=== PATIENT | female | born 1995 | race Caucasian/White ===

== ENCOUNTER 2017-11-24 03:15 | Emergency (ER) | payer BC, OTHER ==
[~2017-11-24] VITALS: Ht 162.6 cm; Wt 54.2 kg
[2017-11-24 03:18] VITALS: TEMP 36.6; Ht 162.6 cm; Wt 54.2 kg
[2017-11-24] MEDS ORDERED: IBUPROFEN 600 MG TAB PO STA (03:42)
[2017-11-24] MEDS ORDERED: ACETAMINOPHEN 500 MG TAB PO STA (03:42)
[2017-11-24 04:47] LABS: BASO % 0.5 %; BASO ABS # 0.05 K/uL (0-0.2); EOS % 3.4 %; EOS ABS # 0.32 K/uL (0-0.5); HEMOGLOBIN 12.3 g/dL (12.0-16.0); IG# 0.03 K/uL (0.00-0.02); LYMPH % 15.2 %; LYMPH ABS # 1.41 K/uL (1.2-3.4); MEAN CELL VOLUME 93.3 fL (80-100); MEAN CORPUSCULAR HEMOGLOBIN 32.8 pg (25-34); MEAN CORPUSCULAR HGB CONC 35.1 g/dl (32-36); MEAN PLATELET VOLUME 9.7 fL (7.4-10.4); MONO % 6.9 %; MONO ABS # 0.64 K/uL (0.11-0.59); NEUT % 73.7 %; NEUT ABS # 6.85 K/uL (1.4-6.5); PLATELET COUNT 282 K/uL (130-400); RED CELL DISTRIBUTION WIDTH CV 12.1 % (11.5-14.5); RED CELL DISTRIBUTION WIDTH SD 41.1 fL (36.4-46.3)
[2017-11-24 05:04] LABS: ALBUMIN 3.6 gm/dl (3.4-5.0); CALCIUM 8.3 mg/dl (8.5-10.1); CREATININE 0.77 mg/dl (0.60-1.20); POTASSIUM 3.7 mmol/L (3.5-5.1)
[2017-11-24 05:07] LABS: TOTAL PROTEIN 6.7 gm/dl (6.4-8.2)
[2017-11-24 06:20] VITALS: BP 112/62; PULSE 82; O2SAT 99
--- NOTE | 2017-11-24 07:24 | DIAGNOSTIC IMAGING REPORT ---
KUB CLINICAL HISTORY: 22 years-old Female presenting with Abd pain. ?Constipation. TECHNIQUE: Single supine view of the abdomen was obtained. COMPARISON: None. FINDINGS: Nonobstructive bowel gas pattern. Moderate stool burden in the right colon. Mottled lucencies in the left upper quadrant may be within the stomach. No gross pneumoperitoneum. Allowing for bowel gas and stool, no calcifications to suggest nephrolithiasis. Osseous structures normal. Lung bases clear. IMPRESSION: 1. Moderate stool burden in the right colon. No bowel obstruction. Electronically signed by: Bayron Vo M.D. 11/24/2017 7:23 AM Dictated Date/Time: 11/24/2017 7:21 AM
--- NOTE | 2017-11-24 07:33 | DIAGNOSTIC IMAGING REPORT ---
TRANSVAG-FEMALE PELVIS CLINICAL HISTORY: Low pelvic pain. Negative test. COMPARISON STUDY: No previous studies for comparison. FINDINGS: The uterus measures 8.6 x 3.4 x 4.8 cm. Endometrium measures 1.3 cm in thickness. Mobile echoes within the endometrium may reflect blood products. The right ovary measures 2.4 x 2 x 2.3 cm and contains a complex 2.1 cm lesion which favors a corpus luteal/hemorrhagic cyst. The left ovary measures 3.7 x 1.8 x 3 cm. There was color flow within each ovary. Small amount of fluid within the pelvis was noted. IMPRESSION: 1. No sonographic evidence of ovarian torsion. 2. Complex 2.1 cm right ovarian lesion which likely reflects a corpus luteal/hemorrhagic cyst. 3. Mobile echoes within the uterine canal which may reflect blood products. Electronically signed by: Dwayne Schroeder M.D. 11/24/2017 7:31 AM Dictated Date/Time: 11/24/2017 7:28 AM
--- NOTE | 2017-11-25 06:32 | EMERGENCY ROOM VISIT NOTE ---
History First contact with patient: 03:22 Chief Complaint: ABDOMINAL PAIN Stated Complaint: SHARP PAIN IN BLADDER AREA Nursing Triage Summary: lower back and mid abdominal pain. pain for 1.5 hours. + nausea. denies V/D. denies urinary symptoms. History of Present Illness The patient is a 22 year old female who presents to the Emergency Room with complaints of mid abdominal pain for the past 90 minutes with nausea. The patient states that she was at work at the time of onset of symptoms. She initially thought that she had used the bathroom, went to the restroom, and reported having a sharp stabbing pain in her low abdomen. She did use the bathroom is normal. The patient does not have chronic medical disease and considers herself usually healthy. No history of abdominal surgery. She is sexually active but is on control and does not believe that she is . The patient has not had recent fever or chills. No chest pain, chest tightness, or shortness of breath. No upper abdominal pain. She has not taken anything [id number] for her symptoms and rates her current discomfort a 7/10. Review of Systems More than 10 systems were reviewed and otherwise negative with the exception of history of present illness. Past Medical/Surgical History No chronic medical disease Family History No pertinent family history Social History Smoking Status: Never Smoker Occupation Status: employed Current/Historical Medications No Active Prescriptions or Reported Meds Physical Exam Vital Signs Date Time Temp Pulse Resp B/P (MAP) Pulse Ox O2 Delivery O2 Flow Rate FiO2 11/24/17 06:20 82 16 112/62 99 11/24/17 05:20 78 18 97/70 99 Room Air 11/24/17 03:18 36.6 84 18 113/74 98 Room Air Physical Exam +VITALS: Vitals are noted on the nurse's note and reviewed by myself. Vital signs stable. GENERAL: Well-developed, well-nourished, white female, who is in no acute distress and resting comfortably. Patient is cooperative with the examination. NECK: Supple without nuchal rigidity. No lymphadenopathy. No thyromegaly. Cervical spine is nontender. HEART: Regular rate and rhythm without murmurs gallops or rubs. LUNGS: Clear to auscultation bilaterally without wheezes, rales or rhonchi. No retractions or accessory muscle use. ABDOMEN: Positive normal bowel sounds x 4. Soft with suprapubic tenderness on palpation. No CVA tenderness. No rebound or guarding. No palpable masses. MUSCULOSKELETAL: No muscle atrophy, erythema, or edema noted. Full range of motion without joint tenderness in all extremities. Medical Decision & Procedures ER Provider Diagnostic Interpretation: KUCielo CLINICAL HISTORY: 22 years-old Female presenting with Abd pain. ?Constipation. TECHNIQUE: Single supine view of the abdomen was obtained. COMPARISON: None. FINDINGS: Nonobstructive bowel gas pattern. Moderate stool burden in the right colon. Mottled lucencies in the left upper quadrant may be within the stomach. No gross pneumoperitoneum. Allowing for bowel gas and stool, no calcifications to suggest nephrolithiasis. Osseous structures normal. Lung bases clear. IMPRESSION: 1. Moderate stool burden in the right colon. No bowel obstruction. TRANSVAG-FEMALE PELVIS CLINICAL HISTORY: Low pelvic pain. Negative test. COMPARISON STUDY: No previous studies for comparison. FINDINGS: The uterus measures 8.6 x 3.4 x 4.8 cm. Endometrium measures 1.3 cm in thickness. Mobile echoes within the endometrium may reflect blood products. The right ovary measures 2.4 x 2 x 2.3 cm and contains a complex 2.1 cm lesion which favors a corpus luteal/hemorrhagic cyst. The left ovary measures 3.7 x 1.8 x 3 cm. There was color flow within each ovary. Small amount of fluid within the pelvis was noted. IMPRESSION: 1. No sonographic evidence of ovarian torsion. 2. Complex 2.1 cm right ovarian lesion which likely reflects a corpus luteal/hemorrhagic cyst. 3. Mobile echoes within the uterine canal which may reflect blood products. Laboratory Results 11/24/17 04:30 Red Blood Count 3.75, Mean Corpuscular Volume 93.3, Mean Corpuscular Hemoglobin 32.8, Mean Corpuscular Hemoglobin Concent 35.1, Mean Platelet Volume 9.7, Neutrophils (%) (Auto) 73.7, Lymphocytes (%) (Auto) 15.2, Monocytes (%) (Auto) 6.9, Eosinophils (%) (Auto) 3.4, Basophils (%) (Auto) 0.5, Neutrophils # (Auto) 6.85, Lymphocytes # (Auto) 1.41, Monocytes # (Auto) 0.64, Eosinophils # (Auto) 0.32, Basophils # (Auto) 0.05 11/24/17 04:30 Test 11/24/17 03:30 11/24/17 04:30 Urine Color YELLOW Urine Appearance CLEAR (CLEAR) Urine pH 8.5 (4.5-7.5) Urine Specific [place] 1.024 (1.000-1.030) Urine Protein NEG (NEG) Urine Glucose (UA) NEG (NEG) Urine Ketones TRACE (NEG) Urine Occult Blood NEG (NEG) Urine Nitrite NEG (NEG) Urine Bilirubin NEG (NEG) Urine Urobilinogen NEG (NEG) Urine Leukocyte Esterase NEG (NEG) Urine Test NEG (NEG) White Blood Count 9.30 K/uL (4.8-10.8) Red Blood Count 3.75 M/uL (4.2-5.4) Hemoglobin 12.3 g/dL (12.0-16.0) Hematocrit 35.0 % (37-47) Mean Corpuscular Volume 93.3 fL (80-100) Mean Corpuscular Hemoglobin 32.8 pg (25-34) Mean Corpuscular Hemoglobin Concent 35.1 g/dl (32-36) Platelet Count 282 K/uL (130-400) Mean Platelet Volume 9.7 fL (7.4-10.4) Neutrophils (%) (Auto) 73.7 % Lymphocytes (%) (Auto) 15.2 % Monocytes (%) (Auto) 6.9 % Eosinophils (%) (Auto) 3.4 % Basophils (%) (Auto) 0.5 % Neutrophils # (Auto) 6.85 K/uL (1.4-6.5) Lymphocytes # (Auto) 1.41 K/uL (1.2-3.4) Monocytes # (Auto) 0.64 K/uL (0.11-0.59) Eosinophils # (Auto) 0.32 K/uL (0-0.5) Basophils # (Auto) 0.05 K/uL (0-0.2) RDW Standard Deviation 41.1 fL (36.4-46.3) RDW Coefficient of Variation 12.1 % (11.5-14.5) Immature Granulocyte % (Auto) 0.3 % Immature Granulocyte # (Auto) 0.03 K/uL (0.00-0.02) Anion Gap 5.0 mmol/L (3-11) Est Creatinine Clear Calc Drug Dose 98.1 ml/min Estimated GFR () 127.0 Estimated GFR (Non- 109.6 BUN/Creatinine Ratio 19.5 (10-20) Calcium Level 8.3 mg/dl (8.5-10.1) Total Bilirubin 0.2 mg/dl (0.2-1) Aspartate Amino Transf (AST/SGOT) 10 U/L (15-37) Alanine Aminotransferase (ALT/SGPT) 17 U/L (12-78) Alkaline Phosphatase 69 U/L (45-117) Total Protein 6.7 gm/dl (6.4-8.2) Albumin 3.6 gm/dl (3.4-5.0) Globulin 3.1 gm/dl (2.5-4.0) Albumin/Globulin Ratio 1.2 (0.9-2) Medications Administered Medications (Trade) Dose Ordered Sig/Hernando Route Start Time Stop Time Status Last Admin Dose Admin Acetaminophen (Tylenol Tab) 1,000 mg NOW STAT PO 11/24/17 03:42 11/24/17 03:43 DC 11/24/17 03:55 1,000 MG Ibuprofen (Motrin Tab) 600 mg NOW STAT PO 11/24/17 03:42 11/24/17 03:43 DC 11/24/17 03:55 600 MG ED Course Physical exam and history were performed. Nursing notes, EMR, and Medication List were personally reviewed. Patient appears to have very low abdominal pain that started about 90 minutes ago. Discomfort is primarily over the suprapubic area and is reproducible on palpation. The discomfort does not appear to be lateralized on examination. Based on initial examination the patient did provide a urine sample. Urinalysis was negative for and did not reveal obvious infection. KUB was then performed, and while this did show some right-sided stool, did not have significant stool throughout the remaining colon to explain her symptoms. At this point IV access was established and labs were obtained. Patient was medicated as above, and ultrasound was performed. The patient's blood work is without a significantly elevated white blood cell count, worsening, bandemia, or significant electrolyte imbalance. The ultrasound is as above and appears to show a small right-sided hemorrhagic ovarian cyst. This is felt to be the likely cause of the patient's discomfort. Overall the patient seems well for discharge home. She is to follow with her primary care physician or LIME HIDE INSPECTOR for ongoing care and evaluation. She will otherwise be treated conservatively. The patient was pleased with plan of care and voiced understanding. The chart was completed utilizing [employer] Speech Voice Recognition Software. Grammatical errors, random word insertions, pronoun errors, and incomplete sentences are an occasional consequence of this system due to software limitations, ambient noise, and hardware issues. Any formal questions or concerns about the content, text, or information contained within the body of this dictation should be directly addressed to the provider for clarification. . Medical Decision Differential diagnosis: Etiologies such as LIME HIDE INSPECTOR etiology, , appendicitis, diverticulitis, PUD , biliary pathology, UTI, pancreatitis, obstruction, mesenteric ischemia, aortic pathology, infections, inflammatory bowel disease, renal colic, as well as others were entertained. Impression Primary Impression: Ovarian cyst Departure Information Dispostion Home / Self-Care Condition FAIR Prescriptions No Active Prescriptions or Reported Meds Forms HOME CARE DOCUMENTATION FORM, Work Instructions, Additional Instructions: Patient seen and evaluated today in the emergency department for medica care. Return to work on 11/26/2017. Please excuse. IMPORTANT VISIT INFORMATION Patient Instructions [facility] Additional Instructions You were seen and evaluated today on an emergency basis only. This is not a substitute for, or an effort to provide, complete comprehensive medical care. It is not possible to recognize and treat all injuries or illnesses in a single emergency department visit. For this reason it is recommended that you followup with your primary care physician or LIME HIDE INSPECTOR with any ongoing or persistent symptoms. For baseline pain relief you may alternate ibuprofen and acetaminophen every 4 hours for pain control. Take 600 mg ibuprofen (Advil) and then 4 hours later take 1000 mg acetaminophen (Tylenol). Do not take more than 3000 mg acetaminophen in a single day. You are welcome to return to the emergency department anytime with new, worsening, or concerning symptoms. Work Instructions Additional Work Instructions: Patient seen and evaluated today in the emergency department for medical care. Return to work on 11/26/2017. Please excuse.
== END 2017-11-24 06:20 | disposition home or self-care (01) ==
LOC: C.EDB 03:16
DX: N83.201 Unspecified ovarian cyst, right side (principal)

== ENCOUNTER 2018-11-26 13:48 | Inpatient (IN) ==
[2018-11-26] MEDS ORDERED: SODIUM CHLORIDE 0.9% 1000ML 1,000 ML IV ONE ×3 (14:31→18:04)
[2018-11-26] MEDS ORDERED: ONDANSETRON INJ 2 MG/ML 2 ML VIAL IV STA (14:31)
[2018-11-26] MEDS ORDERED: KETOROLAC 30 MG/ML VIAL IV STA (14:31)
[2018-11-26 14:58] LABS: Basophils # (auto) 0.03 K/uL (0-0.2); Basophils % (auto) 0.4 %; Eosinophils # (auto) 0.01 K/uL (0-0.5); Eosinophils % (auto) 0.1 %; Hematocrit (blood only) 34.7 % (37-47); Immature Granulocytes # (auto) 0.02 K/uL (0.00-0.02); Immature Granulocytes % (auto) 0.3 %; Lymphocytes # (auto) 0.75 K/uL (1.2-3.4); Lymphocytes % (auto) 9.7 %; Mean Corpuscular Hgb Conc 34.6 g/dL (32-36); Mean Corpuscular Volume 92.5 fL (80-100); Mean Platelet Volume 9.7 fL (7.4-10.4); Monocytes # (auto) 0.29 K/uL (0.11-0.59); Monocytes % (auto) 3.7 %; Neutrophils # (auto) 6.67 K/uL (1.4-6.5); Neutrophils % (auto) 85.8 %; Platelet Count 222 K/uL (130-400); RDW Coefficient of Variation 12.3 % (11.5-14.5); RDW Standard Deviation 41.6 fL (36.4-46.3); Red Blood Count 3.75 M/uL (4.2-5.4); White Blood Count 7.77 K/uL (4.8-10.8)
[2018-11-26 15:15] LABS: Albumin Level 3.8 gm/dl (3.4-5.0); BUN Creatinine Ratio 12.2 (10-20); Calcium 8.7 mg/dl (8.5-10.1); Creatinine Clr Calc Pharmacy 123.9 ml/min; Est GFR (African American) 148.1; Est GFR (Non-African American) 127.8; Potassium 3.4 mmol/L (3.5-5.1)
[2018-11-26 15:18] LABS: Albumin Globulin Ratio 1.4 (0.9-2); Bilirubin,Total 0.6 mg/dl (0.2-1); Globulin 2.6 gm/dl (2.5-4.0); Total Protein 6.4 gm/dl (6.4-8.2)
[2018-11-26 15:39] LABS: Appearance Urine Clear (Clear); Bacteria Urine Automated Negative (Negative); Bilirubin Urine Negative (Negative); Color Urine Dark Yellow; Epithelial Cell Urine Auto >30 /lpf (0-5); Glucose Urine UA Negative (Negative); Ketones Urine 2+ (Negative); Leukocyte Esterase Urine Trace (Negative); Nitrite Urine Negative (Negative); Protein Urine Negative (Negative); Specific Gravity Urine 1.009 (1.000-1.030); Urobilinogen Urine Negative (Negative); pH Urine 7.5 (4.5-7.5)
[2018-11-26] MEDS ORDERED: IOVERSOL 100ml IV PRN (15:53)
--- NOTE | 2018-11-26 16:28 | CT Scan Report ---
CT abd pelvis IV con only CLINICAL HISTORY: 23 years-old Female presenting with abd pain around umbilicus . TECHNIQUE: Multidetector CT of the abdomen and pelvis was performed after the administration of intra venous contrast. IV contrast: 93 mL of Optiray 320. One or more dose lowering techniques were used co nsistent with the principles of ALARA (as low as reasonably achievable), including automatic exposure control, mA or kV adjustment to individual patient size, and/or use of iterative reconstruction. COMPARISON: None. CT DOSE (mGy.cm): The estimated cumulative dose is 246.68 mGy.cm. 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 Lung bases: No focal infiltrate or nodule at the lung bases. Normal heart size. No pericardial or ple ural effusion. Liver: Normal morphology. No liver lesion. Patent hepatic vasculature. Significant periportal edema, which may relate to aggressive volume resuscitation. Biliary: No intrahepatic or extrahepatic biliary ductal dilatation. Gallbladder wall thickening and/o r consistent with may also relate to aggressive volume resuscitation and hepatic parenchymal edema. Pancreas: Normal. Spleen: Normal. Adrenal glands: Normal. Kidneys and ureters: Subcentimeter hypodensity in the right kidney likely simple cyst. Allowing for t he presence of excreted contrast in the urinary collecting systems, no nephrolithiasis. No hydronephr osis. No perinephric fat infiltration. Ureters grossly nondistended allowing for the paucity of intra -abdominal fat. Bladder: Normal. Pelvic organs: Uterus is normal. Dominant follicle in the left ovary. Right ovary also normal and wit h follicles. Fluid and gas noted in the vagina. Bowel: The appendix is not clearly visualized given the absence of oral contrast and decompressed rig ht lower quadrant small bowel. No bowel obstruction. Peritoneal cavity: Small amount of free fluid in the pelvis, possibly physiologic. Trace perihepatic free fluid. No free intraperitoneal gas. Lymph nodes: No enlarged lymph nodes in the abdomen or pelvis. Vasculature: Aorta and IVC patent and normal in caliber. Left retroaortic renal vein noted. Abdominal wall: Normal. Musculoskeletal: Normal. IMPRESSION: 1. The appendix is not visualized, which may in part be due to a paucity of intra-abdominal fat and the absence of oral contrast. Appendicitis cannot be excluded. Given the patient's size and the expec robyn location the appendix, if there is persistent clinical concern for appendicitis, right lower quad rant ultrasound could be obtained prior to repeat CT with oral contrast. 2. Findings suggest aggressive volume resuscitation with trace perihepatic fluid, periportal edema, gallbladder wall edema. 3. Free fluid in the pelvis may be physiologic. 4. Dominant follicle in the left ovary. Electronically signed by: Bayron Vo M.D. 11/26/2018 4:27 PM
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
--- NOTE | 2018-11-26 18:07 | Ultrasound Report ---
US appendix CLINICAL HISTORY: 23 years-old Female presenting with periumbilical abd pain . TECHNIQUE: Real-time grayscale and limited color Doppler ultrasound imaging of the right lower quadra nt was performed to evaluate the appendix. COMPARISON: CT from earlier today. FINDINGS: Free fluid in the right lower quadrant. Appendix not visualized. No hyperechogenic fat to suggest sec ondary signs of inflammation. Patent iliac vasculature. IMPRESSION: Appendix not visualized. Given the presence of free fluid in the right lower quadrant, appendicitis c annot be excluded. If there is continuing clinical concern, repeat contrast enhanced CT with oral con trast recommended. Electronically signed by: Bayron Vo M.D. 11/26/2018 6:05 PM
--- NOTE | 2018-11-26 19:01 | Emergency Department Note ---
ED Visit Note I received this patient at change of shift signout from Dr. Barrett. Please see his note for initial history and physical. The patient is a 23-year-old female who began having abdominal pain acutely this morning at approximately 5:00. She states the pain awoke her from sleep. She states that she felt fine last evening. She denies any recent alcohol use but does admit to having deep fried tacos last evening at approximately 9 PM. The patient has never had similar symptoms in the past. She started having periumbilical pain this morning and came to the emergency department. Initially she was diagnosed with urinary tract infection when her workup failed to reveal any source for her acute abdominal pain. The patient started having episodes of emesis after she left the emergency department. She returns today after having approximately 2 episodes of emesis. Her pain has been consistent in the paraumbilical region. When she saw Dr. Barrett she had laboratory and radiographic studies. She was found to have a normal white blood cell count but her lipase was 1000. The patient did not have any elevation in her liver function studies. She denies any recurrent alcohol use. Because of her symptoms and continued pain Dr. Barrett discussed her case with the on-call [facility] hospitalist. The patient was evaluated by the [facility] hospitalist and was felt to have symptoms more consistent with acute appendicitis with pain now in the right lower quadrant. I independently evaluated the patient. She does have reproducible right-sided abdominal pain but no guarding at this time. I discussed her case with the on-call general surgeon. He is agreed to evaluate the patient in the emergency department. It is likely the patient will require a medical admission for serial abdominal exams. Her ultrasound was not able to visualize her appendix. The patient was treated with IV fluids in the emergency department. She was much more comfortable on my evaluation. Ultimately after her surgical evaluation she was felt to be a good candidate for medical admission for serial abdominal exams and then further consultation and workup as clinically warranted. .
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
[2018-11-26] MEDS ORDERED: ONDANSETRON INJ 2 MG/ML 2 ML VIAL ONE (20:19)
[2018-11-26] MEDS ORDERED: ACETAMINOPHEN 325 MG TAB PO PRN (20:32)
[2018-11-26] MEDS ORDERED: PIPERACILL/TAZOBAC CONSULT ACTIVE PRN (20:32)
[2018-11-26] MEDS ORDERED: ONDANSETRON INJ 2 MG/ML 2 ML VIAL IV PRN (20:32)
[2018-11-26] MEDS ORDERED: MAGNESIUM HYDROXIDE SUSP 30 ML UDC PO PRN (20:32)
[2018-11-26] MEDS ORDERED: PIPERACILLIN/TAZOBACTAM 3.375 GM/115 ML BAG IV ONE (21:00)
[2018-11-26] MEDS: D5W AND 1/2NSS + 20MEQ KCL 20 MEQ/1,000 ML BAG IV SCH (22:34)
[2018-11-27] MEDS: PIPERACILLIN/TAZOBACTAM 3.375 GM in DEXTROSE 5% 100 ML IV SCH ×3 (01:54→18:20)
[2018-11-27 06:32] LABS: Basophils # (auto) 0.04 K/uL (0-0.2); Basophils % (auto) 0.8 %; Eosinophils # (auto) 0.14 K/uL (0-0.5); Eosinophils % (auto) 2.9 %; Hematocrit (blood only) 33.8 % (37-47); Hemoglobin 11.7 g/dL (12.0-16.0); Lymphocytes # (auto) 1.81 K/uL (1.2-3.4); Lymphocytes % (auto) 37.2 %; Mean Corpuscular Hgb Conc 34.6 g/dL (32-36); Mean Corpuscular Volume 93.4 fL (80-100); Mean Platelet Volume 9.7 fL (7.4-10.4); Monocytes # (auto) 0.55 K/uL (0.11-0.59); Monocytes % (auto) 11.3 %; Neutrophils # (auto) 2.32 K/uL (1.4-6.5); Neutrophils % (auto) 47.8 %; Platelet Count 206 K/uL (130-400); RDW Coefficient of Variation 12.4 % (11.5-14.5); Red Blood Count 3.62 M/uL (4.2-5.4); White Blood Count 4.86 K/uL (4.8-10.8)
[2018-11-27 07:01] LABS: BUN Creatinine Ratio 5.5 (10-20); Calcium 8.3 mg/dl (8.5-10.1); Creatinine Clr Calc Pharmacy 99.4 ml/min; Est GFR (African American) 128.1; Est GFR (Non-African American) 110.6; Phosphorus 3.6 mg/dl (2.5-4.9); Potassium 3.4 mmol/L (3.5-5.1)
[2018-11-27] MEDS ORDERED: POTASSIUM CHLORIDE 20 MEQ TABCR PO ONE (10:00)
[2018-11-27] MEDS: D5W AND 1/2NSS + 20MEQ KCL 20 MEQ/1,000 ML BAG IV SCH ×2 (10:18→22:57)
[2018-11-27 10:22] LABS: Chol HDL Ratio 3; Cholesterol 119 mg/dl (0-200); HDL Cholesterol 46 mg/dl; LDL Cholesterol Calculated 59 mg/dl; Triglycerides 69 mg/dl (0-150); VLDL Cholesterol 14 mg/dl
--- NOTE | 2018-11-27 10:46 | Surgery Progress Note ---
Date of Service November 27, 2018 Assessment & Plan (1) Pancreatitis: 23-year-old female with acute uncomplicated pancreatitis of unknown cause , which appears to be resolving. There is no evidence of acute appendicitis at this time. No acute surgical intervention indicated. Recommend workup for pancreatitis May advance to clears as symptoms resolve Surgery will continue to follow, call with questions or concerns Present on Admission?: Yes Subjective 23-year-old female admitted with pancreatitis from unknown cause, surgery following over concern for appendicitis. This morning she is feeling better, still with some achiness in her epigastric abdomen. She also reports some nausea, though she has had no episodes of vomiting since being admitted. She denies any right lower quadrant pain. Physical Exam 2 Vital Signs (Past 24 Hours): Last Vital Signs Temp 36.8 C 11/27/18 07:22 Pulse 68 11/27/18 07:22 Resp 14 11/27/18 07:22 BP 91/54 L 11/27/18 07:22 Pulse Ox 99 11/27/18 07:22 Constitutional: WD/WN, vitals as above no acute distress Gastrointestinal (Abdomen): Abdomen soft, minimally tender in epigastrium, no right lower quadrant tenderness, no guarding, no rebound Results & Data Laboratory Results Laboratory Results - last 24 hr 11/26/18 11/26/18 11/26/18 14:47 14:47 15:18 WBC 7.77 RBC 3.75 L Hgb 12.0 Hct 34.7 L MCV 92.5 MCH 32.0 MCHC 34.6 RDW Std Deviation 41.6 RDW Coeff of Eber 12.3 Plt Count 222 MPV 9.7 Immature Gran % (Auto) 0.3 Neut % (Auto) 85.8 Lymph % (Auto) 9.7 [place] % (Auto) 3.7 Eos % (Auto) 0.1 Baso % (Auto) 0.4 Immature Gran # (Auto) 0.02 Neut # (Auto) 6.67 H Lymph # (Auto) 0.75 L [place] # (Auto) 0.29 Eos # (Auto) 0.01 Baso # (Auto) 0.03 Sodium 140 Potassium 3.4 L Chloride 109 H Carbon Dioxide 22 Anion Gap 8.0 BUN 8 Creatinine 0.61 Est Cr Clr Drug Dosing 123.9 Est GFR ( Amer) 148.1 Est GFR (Non-Af Amer) 127.8 BUN/Creatinine Ratio 12.2 Glucose 95 Calcium 8.7 Phosphorus Magnesium Total Bilirubin 0.6 AST 16 ALT 20 Alkaline Phosphatase 46 Total Protein 6.4 Albumin 3.8 Globulin 2.6 Albumin/Globulin Ratio 1.4 Triglycerides Cholesterol LDL Cholesterol, Calc VLDL Cholesterol, Calc HDL Cholesterol Cholesterol/HDL Ratio Lipase 1002 H Urine Color Urine Appearance Urine pH Ur Specific [place] Urine Protein Urine Glucose (UA) Urine Ketones Urine Blood Urine Nitrite Urine Bilirubin Urine Urobilinogen Ur Leukocyte Esterase Urine WBC (Auto) Urine RBC (Auto) U Hyaline Cast (Auto) U Epithel Cells (Auto) Urine Bacteria (Auto) POC Ur Test NEG 11/26/18 11/27/18 11/27/18 15:18 06:17 06:17 WBC 4.86 RBC 3.62 L Hgb 11.7 L Hct 33.8 L MCV 93.4 MCH 32.3 MCHC 34.6 RDW Std Deviation 42.0 RDW Coeff of Eber 12.4 Plt Count 206 MPV 9.7 Immature Gran % (Auto) 0.0 Neut % (Auto) 47.8 Lymph % (Auto) 37.2 [place] % (Auto) 11.3 Eos % (Auto) 2.9 Baso % (Auto) 0.8 Immature Gran # (Auto) 0.00 Neut # (Auto) 2.32 Lymph # (Auto) 1.81 [place] # (Auto) 0.55 Eos # (Auto) 0.14 Baso # (Auto) 0.04 Sodium 140 Potassium 3.4 L Chloride 109 H Carbon Dioxide 25 Anion Gap 6.0 BUN 4 L Creatinine 0.76 Est Cr Clr Drug Dosing 99.4 Est GFR ( Amer) 128.1 Est GFR (Non-Af Amer) 110.6 BUN/Creatinine Ratio 5.5 L Glucose 101 H Calcium 8.3 L Phosphorus 3.6 Magnesium 2.0 Total Bilirubin AST ALT Alkaline Phosphatase Total Protein Albumin Globulin Albumin/Globulin Ratio Triglycerides Cholesterol LDL Cholesterol, Calc VLDL Cholesterol, Calc HDL Cholesterol Cholesterol/HDL Ratio Lipase Urine Color Dark Yellow Urine Appearance Clear Urine pH 7.5 Ur Specific [place] 1.009 Urine Protein Negative Urine Glucose (UA) Negative Urine Ketones 2+ H Urine Blood Negative Urine Nitrite Negative Urine Bilirubin Negative Urine Urobilinogen Negative Ur Leukocyte Esterase Trace H Urine WBC (Auto) 1-5 Urine RBC (Auto) 0-4 U Hyaline Cast (Auto) 1-5 U Epithel Cells (Auto) >30 H Urine Bacteria (Auto) Negative POC Ur Test 11/27/18 06:17 WBC RBC Hgb Hct MCV MCH MCHC RDW Std Deviation RDW Coeff of Eber Plt Count MPV Immature Gran % (Auto) Neut % (Auto) Lymph % (Auto) [place] % (Auto) Eos % (Auto) Baso % (Auto) Immature Gran # (Auto) Neut # (Auto) Lymph # (Auto) [place] # (Auto) Eos # (Auto) Baso # (Auto) Sodium Potassium Chloride Carbon Dioxide Anion Gap BUN Creatinine Est Cr Clr Drug Dosing Est GFR ( Amer) Est GFR (Non-Af Amer) BUN/Creatinine Ratio Glucose Calcium Phosphorus Magnesium Total Bilirubin AST ALT Alkaline Phosphatase Total Protein Albumin Globulin Albumin/Globulin Ratio Triglycerides 69 Cholesterol 119 LDL Cholesterol, Calc 59 VLDL Cholesterol, Calc 14 HDL Cholesterol 46 Cholesterol/HDL Ratio 3 Lipase Urine Color Urine Appearance Urine pH Ur Specific [place] Urine Protein Urine Glucose (UA) Urine Ketones Urine Blood Urine Nitrite Urine Bilirubin Urine Urobilinogen Ur Leukocyte Esterase Urine WBC (Auto) Urine RBC (Auto) U Hyaline Cast (Auto) U Epithel Cells (Auto) Urine Bacteria (Auto) POC Ur Test _ (1) Pancreatitis Acute pancreatitis complication: unspecified Chronicity: acute Pancreatitis type: unspecified pancreatitis type Qualified Code(s): K85.90 - Acute pancreatitis without necrosis or infection, unspecified
--- NOTE | 2018-11-27 12:33 | Ultrasound Report ---
US abdomen limited HISTORY: Pain. Nausea. admit with pancreaitis, r/o gall stones. COMPARISON: None. FINDINGS: Pancreas: The pancreas demonstrates a normal echotexture. Liver: Unremarkable. Gallbladder: No gallbladder wall thickening. No gallstones. CBD: 4 mm Right kidney: No hydronephrosis. IMPRESSION: No significant abnormality identified within the within the right upper quadrant. The above report was generated using voice recognition software. It may contain grammatical, syntax or spelling errors. Electronically signed by: Jose Caro M.D. 11/27/2018 12:32 PM
--- NOTE | 2018-11-27 18:32 | Family Medicine Progress Note ---
Date of Service November 27, 2018 Assessment & Plan (1) Pancreatitis: 23 yo F presenting with history of abdominal pain found to have UA consitent with UTI elevated lipase >1000, RLQ US unremarkable, appendix not visualized, CT abdomen unremarkable, appendix not visualized, admitted with presumed pancreatitis. RUQ US negative for gallstones. - New onset Pancreatitis, etiology unclear, negative RUQ us for gallstones, reported infrequent history of alcohol - Lipid panel ordered, negative for hypertriglyceridemia, no fhx of GI disorders, autoimmune disorders, pancreatic disorders - Continue IV fluids - Pain control, PRN anti-nausea medications - Continue Zosyn pending urine cx - GI consulted (2) UTI (urinary tract infection): as above (3) Hypokalemia: supplement orally as needed Supervising Physician Co-Signing Physician Notes Attending attestation Pt seen and examined in concert with Dr. Gr. In agreement with the documented findings as noted in the resident documentation with any exceptions or additions as noted here. Pt reports well controlled mild aching epigastric abdominal pain which is better than previous with mild intermittent nausea without further vomiting. On examination, S1/S2 nl RRR no MCG. CTAB. Epigastric TTP mild without guarding , some suprapubic RLQ TTP as well. Acute abdominal pain RUQ US without signs of cholecystitis, mildly elevated lipase, CTAP without apparent appendix. With abn UA, concerning for atypical cystitis or sequelae of nephrolithiasis v. gastritis v. atypical pancreatitis. Gastroenterology consultation appreciated. Continue IVF, nausea and pain control. Else see resident documentation as noted. Subjective Pt reports significant improvement in abdominal pain. She rates pain at 10/10 . She denies n/v, fevers, chills, change in stools Physical Exam 2 Vital Signs (Past 24 Hours): Last Vital Signs Temp 36.9 C 11/27/18 14:59 Pulse 63 11/27/18 14:59 Resp 17 11/27/18 14:59 BP 99/64 L 11/27/18 14:59 Pulse Ox 94 11/27/18 14:59 Physical Exam: GENERAL APPEARANCE: alert and cooperative, and appears to be in no acute distress. HEAD: normocephalic. EARS: External auditory canals and tympanic membranes clear, hearing grossly intact. NECK: Neck supple, non-tender without lymphadenopathy CARDIAC: Normal S1 and S2. No S3, S4 or murmurs. Rhythm is regular LUNGS: Clear to auscultation and percussion without rales, rhonchi, wheezing or diminished breath sounds. ABDOMEN: Epigastric, periumbilical tenderness to palpaiton, RLQ tenderness to palpation, no rebound, no rigidity LOWER EXTREMITY: no edema NEUROLOGICAL: CN II-XII grossly intact. Strength and sensation symmetric and grossly intact throughout. Results & Data Laboratory Results Laboratory Results WBC 4.86 K/uL (4.8-10.8) 11/27/18 06:17 RBC 3.62 M/uL (4.2-5.4) L 11/27/18 06:17 Hgb 11.7 g/dL (12.0-16.0) L 11/27/18 06:17 Hct 33.8 % (37-47) L 11/27/18 06:17 MCV 93.4 fL (80-100) 11/27/18 06:17 MCH 32.3 pg (25-34) 11/27/18 06:17 MCHC 34.6 g/dL (32-36) 11/27/18 06:17 RDW Std Deviation 42.0 fL (36.4-46.3) 11/27/18 06:17 RDW Coeff of Eber 12.4 % (11.5-14.5) 11/27/18 06:17 Plt Count 206 K/uL (130-400) 11/27/18 06:17 MPV 9.7 fL (7.4-10.4) 11/27/18 06:17 Immature Gran % (Auto) 0.0 % 11/27/18 06:17 Neut % (Auto) 47.8 % 11/27/18 06:17 Lymph % (Auto) 37.2 % 11/27/18 06:17 [place] % (Auto) 11.3 % 11/27/18 06:17 Eos % (Auto) 2.9 % 11/27/18 06:17 Baso % (Auto) 0.8 % 11/27/18 06:17 Immature Gran # (Auto) 0.00 K/uL (0.00-0.02) 11/27/18 06:17 Neut # (Auto) 2.32 K/uL (1.4-6.5) 11/27/18 06:17 Lymph # (Auto) 1.81 K/uL (1.2-3.4) 11/27/18 06:17 [place] # (Auto) 0.55 K/uL (0.11-0.59) 11/27/18 06:17 Eos # (Auto) 0.14 K/uL (0-0.5) 11/27/18 06:17 Baso # (Auto) 0.04 K/uL (0-0.2) 11/27/18 06:17 Sodium 140 mmol/L (136-145) 11/27/18 06:17 Potassium 3.4 mmol/L (3.5-5.1) L 11/27/18 06:17 Chloride 109 mmol/L (98-107) H 11/27/18 06:17 Carbon Dioxide 25 mmol/L (21-32) 11/27/18 06:17 Anion Gap 6.0 (3-11) 11/27/18 06:17 BUN 4 mg/dl (7-18) L 11/27/18 06:17 Creatinine 0.76 mg/dl (0.6-1.2) 11/27/18 06:17 Est Cr Clr Drug Dosing 99.4 ml/min 11/27/18 06:17 Est GFR ( Amer) 128.1 11/27/18 06:17 Est GFR (Non-Af Amer) 110.6 11/27/18 06:17 BUN/Creatinine Ratio 5.5 (10-20) L 11/27/18 06:17 Glucose 101 mg/dl (70-99) H 11/27/18 06:17 Calcium 8.3 mg/dl (8.5-10.1) L 11/27/18 06:17 Phosphorus 3.6 mg/dl (2.5-4.9) 11/27/18 06:17 Magnesium 2.0 mg/dl (1.8-2.4) 11/27/18 06:17 Total Bilirubin 0.6 mg/dl (0.2-1) 11/26/18 14:47 AST 16 U/L (15-37) 11/26/18 14:47 ALT 20 U/L (12-78) 11/26/18 14:47 Alkaline Phosphatase 46 U/L (45-117) 11/26/18 14:47 Total Protein 6.4 gm/dl (6.4-8.2) 11/26/18 14:47 Albumin 3.8 gm/dl (3.4-5.0) 11/26/18 14:47 Globulin 2.6 gm/dl (2.5-4.0) 11/26/18 14:47 Albumin/Globulin Ratio 1.4 (0.9-2) 11/26/18 14:47 Triglycerides 69 mg/dl (0-150) 11/27/18 06:17 Cholesterol 119 mg/dl (0-200) 11/27/18 06:17 LDL Cholesterol, Calc 59 mg/dl 11/27/18 06:17 VLDL Cholesterol, Calc 14 mg/dl 11/27/18 06:17 HDL Cholesterol 46 mg/dl 11/27/18 06:17 Cholesterol/HDL Ratio 3 11/27/18 06:17 Lipase 1002 U/L (73-393) H 11/26/18 14:47 Urine Color Dark Yellow 11/26/18 15:18 Urine Appearance Clear (Clear) 11/26/18 15:18 Urine pH 7.5 (4.5-7.5) 11/26/18 15:18 Ur Specific [place] 1.009 (1.000-1.030) 11/26/18 15:18 Urine Protein Negative (Negative) 11/26/18 15:18 Urine Glucose (UA) Negative (Negative) 11/26/18 15:18 Urine Ketones 2+ (Negative) H 11/26/18 15:18 Urine Blood Negative (Negative) 11/26/18 15:18 Urine Nitrite Negative (Negative) 11/26/18 15:18 Urine Bilirubin Negative (Negative) 11/26/18 15:18 Urine Urobilinogen Negative (Negative) 11/26/18 15:18 Ur Leukocyte Esterase Trace (Negative) H 11/26/18 15:18 Urine WBC (Auto) 1-5 /hpf (0-5) 11/26/18 15:18 Urine RBC (Auto) 0-4 /hpf (0-4) 11/26/18 15:18 U Hyaline Cast (Auto) 1-5 /lpf (0-5) 11/26/18 15:18 U Epithel Cells (Auto) >30 /lpf (0-5) H 11/26/18 15:18 Urine Bacteria (Auto) Negative (Negative) 11/26/18 15:18 POC Ur Test NEG (NEG) 11/26/18 15:18 Diagnostic Findings US abdomen limited HISTORY: Pain. Nausea. admit with pancreaitis, r/o gall stones. COMPARISON: None. FINDINGS: Pancreas: The pancreas demonstrates a normal echotexture. Liver: Unremarkable. Gallbladder: No gallbladder wall thickening. No gallstones. CBD: 4 mm Right kidney: No hydronephrosis. IMPRESSION: No significant abnormality identified within the within the right upper quadrant. The above report was generated using voice recognition software. It may contain grammatical, syntax or spelling errors. Electronically signed by: Jose Caro M.D. 11/27/2018 12:32 PM Medications Administered Potassium Chloride/Dextrose/Sod Cl (D5w And 1/2nss + 20meq Kcl) 20 meq in 1, 000 mls @ 80 mls/hr IV .[id number] [facility] Stop: 12/26/18 20:59 Last Admin: 11/27/18 10:18 Dose: 80 mls/hr Infusion: 11/27/18 10:18 Dose: 80 mls/hr Admin: 11/26/18 22:34 Dose: 80 mls/hr Piperacillin Sod/Tazobactam (Sod 3.375 gm/ Dextrose) 115 mls @ 28.75 mls/hr IV Q8H [facility]; Protocol Stop: 12/07/18 01:59 Last Admin: 11/27/18 18:20 Dose: 28.8 mls/hr Infusion: 11/27/18 14:19 Dose: Admin: 11/27/18 10:21 Dose: 28.8 mls/hr Infusion: 11/27/18 05:54 Dose: 0 mls/hr Admin: 11/27/18 01:54 Dose: 28.8 mls/hr Ioversol (Optiray 320 100ml) 93 ml IV ONCE PRN PRN Reason: Interaction Checking Stop: 11/30/18 15:52 Last Admin: 11/26/18 15:53 Dose: 93 ml Discontinued Medications Sodium Chloride (Nss 1000ml) 1,000 mls @ 999 mls/hr IV .Q1H1M ONE Stop: 11/26/18 15:31 Last Infusion: 11/26/18 16:07 Dose: 0 mls/hr Admin: 11/26/18 14:57 Dose: 999 mls/hr Sodium Chloride (Nss 1000ml) 1,000 mls @ 999 mls/hr IV .Q1H1M ONE Stop: 11/26/18 19:03 Last Infusion: 11/26/18 19:28 Dose: 0 mls/hr Admin: 11/26/18 18:16 Dose: 999 mls/hr Sodium Chloride (Nss 1000ml) 1,000 mls @ 999 mls/hr IV .Q1H1M ONE Stop: 11/26/18 19:04 Last Admin: 11/26/18 18:16 Dose: Not Given Piperacillin Sod/Tazobactam Sod (Zosyn) 3.375 gm in 115 mls @ 230 mls/hr IV NOW ONE; Protocol Stop: 11/26/18 21:29 Last Infusion: 11/26/18 23:08 Dose: 0 mls/hr Admin: 11/26/18 22:38 Dose: 230 mls/hr Ketorolac Tromethamine (Toradol) 10 mg IV NOW STA Stop: 11/26/18 14:32 Last Admin: 11/26/18 14:57 Dose: 10 mg Ondansetron HCl (Zofran) 4 mg IV NOW STA Stop: 11/26/18 14:32 Last Admin: 11/26/18 14:57 Dose: 4 mg Ondansetron HCl (Zofran) Confirm Administered Dose 4 mg .ROUTE .STK-MED ONE Stop: 11/26/18 20:20 Last Admin: 11/26/18 20:21 Dose: 4 mg Potassium Chloride (Klor-Con M20) 40 meq PO NOW ONE Stop: 11/27/18 10:01 Last Admin: 11/27/18 10:25 Dose: 40 meq Resident Activity Tracking Resident Involvement: Resident Care Provided Care Provided: [facility] Medicine _ (1) Pancreatitis Acute pancreatitis complication: unspecified Chronicity: acute Pancreatitis type: unspecified pancreatitis type Qualified Code(s): K85.90 - Acute pancreatitis without necrosis or infection, unspecified (2) UTI (urinary tract infection) Encounter type: Hematuria presence: with hematuria Indwelling urinary catheter type: Urinary tract infection type: acute cystitis Qualified Code(s) : N30.01 - Acute cystitis with hematuria
[2018-11-28] MEDS: PIPERACILLIN/TAZOBACTAM 3.375 GM in DEXTROSE 5% 100 ML IV SCH ×2 (01:26→09:10)
[2018-11-28 07:44] LABS: Basophils # (auto) 0.03 K/uL (0-0.2); Basophils % (auto) 0.6 %; Eosinophils # (auto) 0.19 K/uL (0-0.5); Eosinophils % (auto) 3.8 %; Hematocrit (blood only) 34.9 % (37-47); Hemoglobin 12.2 g/dL (12.0-16.0); Immature Granulocytes # (auto) 0.01 K/uL (0.00-0.02); Immature Granulocytes % (auto) 0.2 %; Lymphocytes # (auto) 1.74 K/uL (1.2-3.4); Lymphocytes % (auto) 35.1 %; Mean Corpuscular Volume 93.1 fL (80-100); Mean Platelet Volume 9.6 fL (7.4-10.4); Monocytes # (auto) 0.53 K/uL (0.11-0.59); Monocytes % (auto) 10.7 %; Neutrophils # (auto) 2.46 K/uL (1.4-6.5); Neutrophils % (auto) 49.6 %; Platelet Count 218 K/uL (130-400); RDW Coefficient of Variation 12.4 % (11.5-14.5); RDW Standard Deviation 41.9 fL (36.4-46.3); Red Blood Count 3.75 M/uL (4.2-5.4); White Blood Count 4.96 K/uL (4.8-10.8)
[2018-11-28 08:20] LABS: Albumin Level 3.5 gm/dl (3.4-5.0); BUN Creatinine Ratio 3.6 (10-20); Calcium 8.7 mg/dl (8.5-10.1); Est GFR (African American) 115.2; Est GFR (Non-African American) 99.4; Potassium 3.5 mmol/L (3.5-5.1)
[2018-11-28 08:23] LABS: Albumin Globulin Ratio 1.3 (0.9-2); Bilirubin,Total 0.8 mg/dl (0.2-1); Globulin 2.7 gm/dl (2.5-4.0); Total Protein 6.2 gm/dl (6.4-8.2)
--- NOTE | 2018-11-28 08:40 | Surgery Progress Note ---
Date of Service November 28, 2018 Assessment & Plan (1) Pancreatitis: 23-year-old female with acute uncomplicated pancreatitis of unknown cause, which appears to be resolving. There continues to be no evidence of acute appendicitis at this time. RUQ U/S negative for gallstones, no gallbladder wall thickening. AM labwork reviewed- WBC 4.96 No acute surgical intervention indicated at this time. GI has been consulted. 11/27/2018 23-year-old female with acute uncomplicated pancreatitis of unknown cause, which appears to be resolving. There is no evidence of acute appendicitis at this time. No acute surgical intervention indicated. Recommend workup for pancreatitis May advance to clears as symptoms resolve Surgery will continue to follow, call with questions or concerns Subjective Patient reports abdominal pain improved this AM- nearly resolved. Reports continued nausea- especially yesterday evening. Denies emesis. Reports an episode of diarrhea this AM. Physical Exam 2 Vital Signs (Past 24 Hours): Last Vital Signs Temp 36.8 C 11/28/18 07:48 Pulse 70 11/28/18 07:48 Resp 20 11/28/18 07:48 BP 107/70 11/28/18 07:48 Pulse Ox 99 11/28/18 07:48 Gastrointestinal (Abdomen): Percussion/Palpation: + abdomen tender (mild epigastric tenderness. ) and abdomen soft _ (1) Pancreatitis Acute pancreatitis complication: unspecified Chronicity: acute Pancreatitis type: unspecified pancreatitis type Qualified Code(s): K85.90 - Acute pancreatitis without necrosis or infection, unspecified
[2018-11-28] MEDS: D5W AND 1/2NSS + 20MEQ KCL 20 MEQ/1,000 ML BAG IV SCH (11:02)
--- NOTE | 2018-11-28 16:42 | Discharge Summary ---
Date of Service November 28, 2018 Admission HPI Per Admitting Provider 23 y/o F c/o abd pain. Pt states she was woken from sleep around 5am with sudden onset of epigastric/umbilical abd pain. She states that this was new for her. She took ibuprofen and waited for 40 minutes without any improvement in her pain, so she came to the ED. She was dx with UTI based on a UA. She was given abx and a script for abx and d/c'd to home. Pt returned to home and her pain continued to worsen. It moved to more umbilical at that time. She developed n/v and could not tolerate any PO, so she returned to the ED. Pt denies any hx of urinary sx. She has no prior hx of UTI. No prior hx of similar pain. She states she felt fine yesterday and had no health changes until waking at 5am as noted. Pt notes that the abd US caused increased pain on the R side and that her pain is moving towards the R. She continues to have nausea but no further emesis. She has chills but no fever. Pt denies fever, SOB, chest pain, c/d, LE pain or swelling. Last alcohol use was 1 glass of wine about 1 week ago. Principal Diagnosis Abdominal Pain Discharge Exam Constitutional WD/WN, vitals as above no acute distress Eyes + anicteric sclerae Respiratory normal respiratory effort, lungs clear to auscultation Cardiovascular RRR, no murmur, no edema Gastrointestinal (Abdomen) Inspection/Auscultation: abdomen not distended Percussion/Palpation: + abdomen tender (RLQ tenderness) and abdomen soft; no guarding and abdomen not rigid Skin no rashes, warm and dry Psychiatric A+Ox3, euthymic affect Discharge Data Allergies Allergy/AdvReac Type Severity Reaction Status Date / Time No Known Allergies Allergy Unverified 11/26/18 14:15 Consultations 11/26/18 18:04 ED Decision to Admit Stat 11/27/18 19:35 Consult Gastroenterology Routine Ordered Studies 11/26/18 14:30 CT abd pelvis IV con only Stat 11/26/18 17:15 US appendix Stat 11/27/18 10:48 US abdomen limited Urgent Hospital Course (1) Pancreatitis: Ms. Yusuf is a 23 year old female presenting with history of abdominal pain. She was found to have UA consistent with a UTI, elevated lipase >1000, RLQ US unremarkable, appendix not visualized, CT abdomen unremarkable, appendix not visualized, admitted with presumed pancreatitis. RUQ US negative for gallstones. Abdominal pain - CT abdomen and pelvis w/out acute abnormalities - U/S of appendix unable to visualize appendix - Abdominal U/S of biliary tree -> normal - general surgery evaluated pt and felt her symptoms were not consistent w/ appendicitis - Lipase elevated at 1002 -> potentially secondary to microlith that caused temporary obstruction of biliary flow - other than elevated lipase, labs were benign, including normal CBC, normal BMP , non-elevated LFTs - Lipid panel ordered, negative for hypertriglyceridemia, no fhx of GI disorders , autoimmune disorders, pancreatic disorders - patient's pain improved prior to d/c, and she tolerated lunch and dinner w/ out further episodes of pain or nausea - GI consulted -> no further investigation required UTI - UA positive, w/urine culture growing pansensitive e.coli, however patient never had urinary complaints - treated w/2 days of zosyn. Continue macrobid on d/c Pt was counselled on establishing care w/a PCP & following up with them. (2) UTI (urinary tract infection): (3) Hypokalemia: Total Time Total Time Spent Total Time Spent (In Minutes): <30 Discharge Plan Discharge Items Patient Disposition: Home - Self-Care Reason For Visit: ABD PAIN Discharge Diagnosis: Abdominal Pain Discharge Goals: Decrease discomfort and Prevent disease Activity: Resume your previous activity Non-emergency contact: Primary Care Provider Call non-emergency contact if: your symptoms worsen, your pain is worsening and you have a fever Diet: Low Fat Addtl Provider Instructions: Clemencia, you were admitted to [facility] due to a severe episodes of abdominal pain. You had multiple imaging studies, including ultrasounds and CT scans. Thankfully , they did not show any concerning problems. Your lipase (enzyme that is elevated in pancreatitis), did increase and then returned to normal on your day of discharge. This may have been caused by a small gallstone that got wedged in your biliary tree (tubes connecting your gallbladder to your bowel), and then dislodged itself. You were seen by our surgery team who felt that your symptoms were not consistent with appendicitis. You were also seen by our GI team who felt that you did not require any further investigations at this time. Your urine culture did grow bacteria that normally causes urinary tract infections. We treated you with IV antibiotics in the hospital and recommend you finish the course of macrobid prescribed to you by the emergency department. If you have a fever, chills, worsening abdominal pain, please seek medical attention. We recommend that you follow up with a primary care provider. Prescriptions: Continue nitrofurantoin monohyd/m-cryst [Macrobid] 100 mg capsule 100 mg PO BID 7 Days Qty: 14 RF: 0 Stand-Alone Forms: [facility] Discharge Orders: Discharge Order (Routine); Ordered 11/28/18 Ordered By: Narda Carrion Admission Data Admit Date/Time: 11/26/18 19:26 Attending Provider: Matthew Feldman Admit Provider: Le Romero Primary Care Provider: PCP,NO Other Providers: Le Romero ; Malick Herrera ; Nelson Topete Service: Medical Other Interventions: Discharge Summary Assessment (RN) Last Done: 11/28/18 18:12 DC Date/Time DO NOT enter until pt leaves facility: 11/28/18 19:09 Supervising Physician Co-Signing Physician Notes I personally examined the patient and verified all chiu points of history and exam, discussed case, and agree with decision making with Dr Carrion. She is feeling better, no new complaints. She did have a little bit of nausea last night but none so far today. Vitals noted, in general she is in no distress. HEENT normal cephalic atraumatic mucous members are moist. Abdomen is soft may be mild epigastric tenderness no guarding no rebound no rigidity. She has no right upper quadrant pain Abdominal painthis appears to have most likely been very transient pancreatitis , given how quickly it resolved and the rest of her symptoms, most likely from microlithiasis. She is stable for home with close outpatient follow-up. Resident Activity Tracking Resident Involvement: Resident Care Provided Care Provided: Adult Hospital Medicine
--- NOTE | 2018-11-28 23:46 | Progress Note ---
DATE: 11/28/2018 REASON FOR CONSULTATION: Right lower quadrant pain and elevated lipase. HISTORY OF PRESENT ILLNESS: The patient is a 23-year-old who was awakened at 5:00 in the morning from sleep with acute onset of central and upper abdominal pain that eventually migrated to the right lower quadrant. Pain was severe and she presented to the Emergency Room, where she was initially diagnosed with a urinary tract infection, but ended up coming back with persistent pain. Her white count was normal and she was afebrile. Imaging studies showed some free fluid in the pelvis and an obscure appendix. Lipase was elevated at 1000. Surgical consultation was requested but did not appear that she had acute appendicitis. Of note is that, this event occurred during the middle of her menstrual cycle when she would normally be ovulating and her CT scan shows multiple ovarian follicles and cysts. The patient is not on control. Since she has been hospitalized, her pain has improved significantly. Imaging of the pancreas is normal and her lipase has returned to normal. PAST MEDICAL HISTORY: Negative. MEDICATIONS: Macrobid for urinary tract infection. ALLERGIES: None. FAMILY HISTORY: Noncontributory. SOCIAL HISTORY: The patient is single. She works in [employer], does not smoke, uses alcohol about once a week in the form of wine. REVIEW OF SYSTEMS: Negative for other systems. PHYSICAL EXAMINATION: GENERAL: The patient appears awake, alert, in no acute distress. VITAL SIGNS: Normal. She is afebrile. ABDOMEN: Soft. Bowel sounds are normal. There is some tenderness to percussion and palpation deep in the right lower quadrant, no mass or rebound. IMPRESSION: The patient has acute onset right lower quadrant pain. I believe this is related to a ruptured ovarian cyst with chemical irritation of the peritoneum from fluid and possible blood. There was some fluid in her abdomen on CT scan and shows multiple ovarian cysts bilaterally. She has had no white count elevation or fever as you would normally expect in an acute appendicitis and the fact that her symptoms are improving and that the onset was during the mid-portion of her menstrual cycle also supports this diagnosis. At this point, I would treat her symptomatically with Tylenol or nonsteroidals and advised her that if her symptoms got worse, that she should be reevaluated, but it is unlikely that this is acute appendicitis.
== END 2018-11-28 19:09 | disposition home or self-care (01) | DRG 439 ==
LOC: ED 13:48 → SUATTDRO 19:26 → 3N 19:26
DX: K85.90 Acute pancreatitis without necrosis or infection, unspecified; N39.0 Urinary tract infection, site not specified; E87.6 Hypokalemia